=== PATIENT | female | born 1930 | race Caucasian/White ===

== ENCOUNTER → 2016-08-17 | Day surgery (SDC) | payer MEDICARE, OTHER ==
[~2016-08-17] MED LIST: AMLODIPINE BESYL5 MG PO; ATIVAN0.5 MG PO; FISH OIL PO; LIPITOR40 MG PO; OXYGEN INH; TRAMADOL HCL50 M2 PO; TYLENOL EXTRA500 M1 PO
--- NOTE | ~2016-08-17 | OR ---
Unit #: [id number] #: [id number] Patient: AGATA VARELA [id number] [address] [address] [id number] MR#: [id number] NAME: AGATA VARELA ROOM: Date of Procedure: 08/17/2016 Admission Date: 08/17/2016 Surgeon: Jignesh Costa M.D. : 1930 Attending Physician: Jignesh Costa M.D. Primary Care Physician: Aureliano Chance M.D. OPERATIVE REPORT SERVICES PROVIDED 1. Therapeutic lumbar epidural steroid injection. 2. Fluoroscopy of lumbosacral spine. 3. IV sedation to facilitate above. PREOPERATIVE DIAGNOSES 1. 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 2. Hypertension. 3. Chronic obstructive pulmonary disease. POSTOPERATIVE DIAGNOSES 1. Multilevel degenerative disk disease L1 through S1 levels with multilevel rhagoxbu-hd-azxmja spinal stenosis and multilevel neuroforaminal stenosis and nerve impingement. 2. Hypertension. 3. Chronic obstructive pulmonary disease. PROCEDURE PERFORMED Lumbar epidural steroid injection using fluoroscopy. FOLLOW-UP/REVIEW OF SYSTEMS/PHYSICAL EXAM Ms. Varela has lumbar radiculopathy secondary to multilevel severe spinal stenosis and neuroforaminal stenosis. She was recommended lumbar epidural steroid injection. She has no medical contraindications. INDICATIONS/COMMENTS AND CONSENTS/STATEMENT OF MEDICAL NECESSITY The patient's current medications, allergies and vital signs are documented in the nursing assessment. The risks and benefits of the intervention(s) were discussed with the patient in detail including but not limited to infection, bleeding, meningitis, steroid induced side-effects, nerve damage, paralysis, spinal headaches, neuritis, persistent or worsening pain. The patient wishes to proceed. A separate pain assessment is also in the chart. I have reviewed all of this and have reviewed this with the patient. A current History and Physical is also attached. DESCRIPTION OF PROCEDURE(S) 1. Monitoring and positioning: After appropriate discussions it was decided to perform the procedure under local anesthesia with supplemental intravenous sedation. Vital signs were monitored in pre, intra and Unit #: [id number] #: [id number] Patient: AGATA VARELA post-procedure phase. Monitoring included EKG, non-invasive BP, pulse oximetry, and temperature. These are documented and were stable. Appropriate supports and restraints were used. 2. Sedation: 1 mg of Versed. 3. Lumbar epidural injection/fluoroscopy: The patient was placed in the sitting position. Positional supports were used. Fluoroscopy of the lumbar spine was performed. Sterile prep and drape with carried out with ChloraPrep. Local anesthesia was with infiltrated with 3 mL of preservative-free 1% lidocaine. Once anesthesia was established, a 22-gauge Tuohy epidural needle was inserted at the L5-S1 level epidurally, using right interlaminar approach, loss of resistance to saline technique, and with fluoroscopic guidance. Needle placement tested negative for subarachnoid and intravascular placement. An intra-operative epidurogram was now performed. Intra-operative epidurogram: 1 mL(s) of Isovue-M300 was injected through the epidural needle under continuous fluoroscopy. The dye was seen to spread to L5 in the cephalad direction, and to S1 in the caudal direction. The spread of the dye was uniform. 1 mL of preservative-free normal saline was used to irrigate the dye off the epidural space. There was no intravascular or intrathecal spread of contrast. A lumbar epidural steroid injection was now performed using total of 3 mL of solution containing 0.2% bupivacaine and 80 mg of Depo-Medrol. Fluoroscopic imaging confirmed spread of medication. The needle was then removed intact. The skin was washed off. Prep solution and dressings were applied at the injection site. The patient tolerated the procedure well. The patient was then observed in the recovery area for 30 minutes. RESULTS The patient had a consistent block with the dose of local anesthetic used. Pain relief was satisfactory. There were no complications or side effects. DISCHARGE CONDITION 1. Patient was discharged in satisfactory condition accompanied by a family member. 2. Post-procedure instructions were given. PLAN(S) The patient will return to the clinic in 2 months for re-assessment and office visit. I thank the patient's referring physician for the opportunity to participate in the care of this patient. Please do not hesitate to call for any questions regarding this patient's pain management. Dictated by... Rosa Collins TD: 08/17/2016 21:25 JOB #: [id number] Unit #: [id number] #: [id number] Patient: AGATA VARELA OPERATIVE REPORT X Jignesh Costa MD PROCEDURE OPERATIVE NOTE
== END | disposition home or self-care (01) ==
LOC: CCSC 09:30
DX: M51.16 Intervertebral disc disorders with radiculopathy, lumbar region (principal); M48.06 Spinal stenosis, lumbar region; I10 Essential (primary) hypertension; J44.9 Chronic obstructive pulmonary disease, unspecified; Z85.828 Personal history of other malignant neoplasm of skin; Z90.710 Acquired absence of both cervix and uterus
CPT/HCPCS: J1040; J2250; J3010